=== PATIENT | female | born 1955 | race Native Hawaiian/Other Pacific Islander ===

== ENCOUNTER 2021-12-08 15:34 | Outpatient (CLI) | payer OTHER | END 2021-12-08 19:56 | disposition home or self-care (01) | LOC: RAD 15:34 | PROVIDERS: ATTEND Family Medicine | DX: M81.0 Age-related osteoporosis without current pathological fracture (principal) ==

== ENCOUNTER 2022-10-19 14:33 | Outpatient (CLI) | payer OTHER | END 2022-10-19 19:18 | disposition home or self-care (01) | LOC: RAD 14:33 | PROVIDERS: ATTEND Nurse Practitioner Family | DX: M54.12 Radiculopathy, cervical region (principal) ==